=== PATIENT | female | born 1950 | race Caucasian/White ===

== ENCOUNTER → 2017-05-07 | Day surgery (SDC) | payer MEDICARE ==
[~2017-05-07] VITALS: Ht 172.7 cm; Wt 95.2 kg
[~2017-05-07] MED LIST: 0.9% Sodium Chloride 1,000 ML IV PRN; ASCO-294 PO; CHOL10008 PO; LOSA1TAB69 PO; Sodium Chloride LOK Flush 10 mL Syringe IV PRN; fentaNYL-PF 50 mCg/mL 2 mL Inj IVPUSH PRN
[2017-05-07 07:30] VITALS: BP 132/51; PULSE 63; RESP 14; O2SAT 97
--- NOTE | 2017-05-07 08:41 | PCM.ENDCOL ---
Colonoscopy Date of Service: May 07, 2017 Physician Wayne Little MD Pre Procedure Diagnosis: Screening history of polyp Post Procedure Dx & Findings: Polyp hemorrhoids diverticuli Procedure Colonoscopy PROCEDURE IN DETAIL: Prep adequate Withdrawal time 12 minutes After unremarkable rectal examination the Olympus video colonoscope was inserted patient's anal canal and was advanced to cecum. Landmarks were identified including the ileocecal valve and appendiceal orifice. Scope was withdrawn systematically. Visualized colonic mucosa showed healthy shiny mucosa with normal healthy-appearing vasculature. In the cecum, there was a 2 mm polyp which was removed completely using cold snare. In the sigmoid colon there was a 2 mm polyp was removed completely with cold snare. During the retrieval process, the sigmoid polyp was lost during processing. Patient and multiple diverticulosis multiple large from the transverse colon to the sigmoid colon. Mostly the diverticuli were in the sigmoid colon. In the rectum retroflexion was done which showed hemorrhoids. Anal canal was inspected carefully on the way out and hemorrhoids noted. Impression Polyp 2 status post complete removal. The sigmoid colon polyp was lost during retrieval process. Diverticuli Hemorrhoids Recommendation Repeat colonoscopy 5 years Diverticular diet Presedation Assessment Risks and Benefits Informed consent was obtained from the patient after all risks and benefits including but not limited to drug reaction, infection, pain, bleeding, perforation, as well as alternatives were discussed. Patient monitoring Continuous pulse oximetry, cardiac monitoring, blood pressure monitoring, IV access, and oxygen at 2L per nasal cannula. Periprocedural Fentanyl: Fentanyl 125mcg Incrementally Midazolam: Midazolam 5mg Incrementally Complications There were no periprocedural complications identified. Post Procedure Plan Post Procedure Recommendations 1. Restrict activities today. 2. Resume normal activities in the morning. 3. Resume medications. 4. Patient informed of normal post procedure side effects as bloating, drowsiness, blood streaking in the stool. 5. average risk CRCS. If colon polyps come back as: -Hyperplastic- can repeat colonoscopy in 10 years -Tubular adenoma- repeat colonoscopy in 5 years -Tubulovillous/villous adenoma- repeat colonoscopy in 3 years -If any dysplasia- return to clinic as soon as possible 6. Please don't hesitate to call me with any questions. Wayne Little MD May 07, 2017 08:41
[2017-05-07 08:43] VITALS: BP 121/57; PULSE 67; RESP 14; O2SAT 92
[2017-05-07 08:52] VITALS: BP 116/54; PULSE 62; RESP 14; O2SAT 93
--- NOTE | 2017-05-08 13:48 | PATH ---
SURGICAL PATHOLOGY Attending Physician:Wayne Little M.D. CASE STATUS: Signed Out PATIENT NAME: DILIA SHANNON PID: [id number] : 1950 DATE COLLECTED:05/07/2017 15:44 SPECIMEN: Colon, Polyp CLINICAL HISTORY: COLON POLYP 1). CECAL POLYP FINAL DIAGNOSIS: 1.CECAL POLYP, BIOPSY: - HYPERPLASTIC POLYP. ICD10 D12.6 GROSS DESCRIPTION: The specimen is received in one formalin filled container labeled with the patient's name, sublabeled "cecal polyp" and consists of a 0.3 x 0.3 x 0.2 CM portion of tissue which is entirely submitted in one cassette. 05/07/2017DC MICRO DESCRIPTION: See diagnosis. ICD-9 CODES: CPT CODES: 1: 71949 Electronically Signed Out Garcia Palma MD [facility] [address] [facility], [place] [address] Technical component performed at [facility], [facility] [address], [address]
== END | disposition home or self-care (01) ==
LOC: END 00:04
PROVIDERS: ATTEND Internal Medicine
DX: Z12.11 Encounter for screening for malignant neoplasm of colon (principal); K63.5 Polyp of colon; K57.30 Diverticulosis of large intestine without perforation or abscess without bleeding; K64.8 Other hemorrhoids; I10 Essential (primary) hypertension; E78.2 Mixed hyperlipidemia; G47.00 Insomnia, unspecified
CPT/HCPCS: 45385; 88305; 99153; G0500; J2250; J3010; J7030